=== PATIENT | female | born 1995 | race Asian ===

== ENCOUNTER 2024-05-19 21:16 | Emergency (ER) | payer OTHER ==
[~2024-05-19] VITALS: Ht 162.6 cm; Wt 74.5 kg
[2024-05-19 21:28] VITALS: TEMP 98
[2024-05-19] MEDS ORDERED: Clindamycin 150 MG CAP PO ONE (22:00)
[2024-05-19] MEDS ORDERED: Home HYDROcodone/Acetaminophen 5/325 MG #4 TABS/PACK PO ONE (22:45)
[2024-05-19] MEDS ORDERED: CLEOCIN HCL300 MG PO (22:56)
[2024-05-19 23:11] VITALS: BP 113/76; PULSE 79
== END 2024-05-19 23:11 | disposition home or self-care (01) ==
LOC: COL.ER 21:16
DX: K04.7 Periapical abscess without sinus (principal)